=== PATIENT | male | born 1955 | race Caucasian/White ===

== ENCOUNTER 2023-12-08 10:47 | Emergency (ER) | payer MEDICARE, SELFPAY ==
--- NOTE | ~2023-12-08 | XR_ITS ---
EXAMINATION: XR lumbar spine 2-3V DATE: 12/08/2023 11:20 INDICATION: Low back pain. Fall. TECHNIQUE: 3 views of lumbar spine were obtained. COMPARISON: None. FINDINGS: There is 8 degrees levocurvature of lumbar spine. There is 4 mm retrolisthesis of L4 on L5. Vertebral body heights are normal. There is mildly decreased disc height at L3-L4 and severely decre ased disc height at L4-L5 and L5-S1. 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 IMPRESSION: 1. Severe lumbar spondylosis. Reviewed, dictated and finalized at location A.
--- NOTE | ~2023-12-08 | XR_ITS ---
EXAMINATION: XR forearm RT 2V DATE: 12/08/2023 11:20 INDICATION: Right forearm pain. Fall. TECHNIQUE: 2 views of right forearm were obtained. COMPARISON: None. FINDINGS: Bone alignment is normal. No fracture. There is mild osteoarthritis of triscaphe joint and first carpometacarpal joint. No elbow joint effusion. IMPRESSION: 1. No fracture. Reviewed, dictated and finalized at location A. IMPRESSION: 1. No fracture.
--- NOTE | 2023-12-08 11:02 | ED.FALL ---
HPI - Fall General Chief Complaint: Extremity Injury, Upper Stated Complaint: R ARM/BACK PAIN Time Seen by Provider: 12/08/23 11:00 Source: patient Mode of arrival: ambulatory Limitations: no limitations History of Present Illness HPI Narrative: Patient is a 68-year-old male who presents with low back pain and right elbow pain after fall in shower today. Patient also fell off a stool last week and has had low back pain since. Denies any numbness, tingling, weakness to lower extremities. Denies any bruising, open wounds or swelling to elbow. Denies any numbness, tingling or weakness to right upper extremity. States he is able to move arm normally but elbow is tender to touch. Has taken Tylenol. Related Data Home Medications Medication Instructions Recorded Confirmed amlodipine 10 mg tablet 10 mg PO DAILY 12/08/23 12/08/23 aspirin 81 mg tablet 81 mg PO DAILY 12/08/23 12/08/23 atenolol 50 mg tablet 50 mg PO DAILY 12/08/23 12/08/23 atorvastatin 10 mg tablet 10 mg PO DAILY 12/08/23 12/08/23 citalopram 20 mg tablet 20 mg PO DAILY 12/08/23 12/08/23 glipizide 5 mg tablet 5 mg PO DAILY 12/08/23 12/08/23 lisinopril 40 mg tablet 40 mg PO DAILY 12/08/23 12/08/23 metformin 500 mg tablet 500 mg PO DIRECTED 12/08/23 12/08/23 semaglutide 14 mg tablet (Rybelsus) 14 mg PO DAILY 12/08/23 12/08/23 spironolactone 50 mg tablet 50 mg PO DAILY 12/08/23 12/08/23 tamsulosin 0.4 mg capsule 0.4 mg PO DAILY 12/08/23 12/08/23 triamterene 37.5 1 cap PO DAILY 12/08/23 12/08/23 mg-hydrochlorothiazide 25 mg capsule Allergies Allergy/AdvReac Type Severity Reaction Status Date / Time No Known Allergies Allergy Verified 12/08/23 11:08 Review of Systems Review of Systems: All systems reviewed & are unremarkable except as noted in HPI and below Constitutional: Constitutional: Denies body ache(s), Denies chills, Denies fatigue, Denies fever(s), Denies headache(s), Denies malaise and Denies weakness Eyes: Eyes: Denies blurry vision, Denies irritation and Denies loss of vision ENT: Denies otalgia, Denies headache(s), Denies nasal discharge, Denies sinus pain and Denies sore throat Cardiovascular: Cardiovascular: Denies chest pain, Denies irregular heart rhythm and Denies dyspnea Respiratory: Respiratory: Denies dyspnea Gastrointestinal: Gastrointestinal: Denies abdominal pain, Denies melena, Denies hematochezia, Denies diarrhea, Denies nausea and Denies vomiting Musculoskeletal: Musculoskeletal: Reports back pain, Denies myalgias and Reports arthralgias Integumentary/Breasts: Skin/Breast: Denies pruritus and Denies rash Neurologic: Denies headache(s), Denies loss of vision and Denies weakness Psychiatric: Psychiatric: Reports no additional psychiatric complaints Endocrine: Endocrine: Denies fatigue PMFSH Comments At time of signature, agree with nursing past medical, surgical, social and family history. There is no relevant family history pertinent to the presenting complaint. Exam Const: General: cooperative, healthy appearing, comfortable, no acute distress and well nourished Nutritional Appearance: well nourished Orientation/consciousness: patient oriented x3 Limitations: no limitations HENMT: Head: normal to inspection, normocephalic and atraumatic Ears: hearing grossly normal bilaterally and external ears normal Face/Nose/Sinus: Normal external nose present, normal facial exam and face symmetric Face and sinus: normal facial exam and face symmetric Mouth: Yes lip normal Eyes: General: appearance normal, both eyes and all related structures Alignment and Position: alignment normal and position normal Periorbital: periorbital findings normal Eyelids: eyelids normal Pupils: Equal, round and reactive pupils present EOM: EOMs intact bilaterally Neck: Neck: normal visual inspection, full ROM and supple Chest: Chest palpation & inspection: normal inspection of the chest Resp: Effort & Inspection: normal respiratory effort an
[2023-12-08 11:03] VITALS: BP 129/65; PULSE 52; RESP 18; TEMP 35.8; O2SAT 98
== END 2023-12-08 11:51 | disposition home or self-care (01) ==
PROVIDERS: Emergency Provider Nurse Practitioner Family
DX: M47.816 Spondylosis without myelopathy or radiculopathy, lumbar region (principal); S50.01XA Contusion of right elbow, initial encounter; W18.2XXA Fall in (into) shower or empty bathtub, initial encounter; E78.00 Pure hypercholesterolemia, unspecified; I10 Essential (primary) hypertension; M17.0 Bilateral primary osteoarthritis of knee; E11.9 Type 2 diabetes mellitus without complications; Z79.84 Long term (current) use of oral hypoglycemic drugs; Z79.82 Long term (current) use of aspirin
CPT/HCPCS: 72100; 73090; 99214; G0463